=== PATIENT | female | born 1950 ===

== ENCOUNTER 2024-02-17 02:47 | Emergency (ER) | payer MEDICARE, SELFPAY ==
--- NOTE | 2024-02-17 | ECG_ITS ---
Test Reason : CARDIAC AREST Blood Pressure : / mmHG Vent. Rate : 038 BPM Atrial Rate : 000 BPM P-R Int : 000 ms QRS Dur : 150 ms QT Int : 454 ms P-R-T Axes : 000 -66 128 degrees QTc Int : 360 ms idioventricular rhythm Abnormal ECG No previous ECGs available Referred By: Ariadna Peter Electronically Signed By:LUDMILA HUERTAS MD
[2024-02-17 03:24] LABS: Glucose, Whole Blood 96 mg/dL (60-115)
[2024-02-17 04:06] VITALS: BMI 28.6
--- NOTE | 2024-02-17 05:26 | ED_ITS ---
HPI - CPR General Chief Complaint: Cardiac Arrest/CPR Stated Complaint: CARDIAC ARREST/ POSSIBLE FALL/UNRESPONISVE Time Seen by Provider: 02/17/24 03:32 Source: EMS Mode of arrival: EMS Limitations: other History of Present Illness ED Provider: Dr. Ariadna Peter HPI narrative: Patient comes to the emergency room via ambulance in cardiac arrest. According to EMS, patient called 911 for shortness of breath, seems that patient was hyperventilating. When EMS arrived at the patient's house, patient was screaming ?help me, help me , EMS had to break the door to get in, once they got into the house, patient lost consciousness and lost pulse. CPR was started immediately. EMS gave 4 epinephrine prior to arrival. Patient arrived at 02:49 here in the ED. pulse check was done, PEA Related Data Allergies Allergy/AdvReac Type Severity Reaction Status Date / Time Unable to Assess Allergy Verified 02/17/24 04:26 Review of Systems Review of Systems: Yes Other [facility] Past Medical History Source: unable to obtain Social History Social History Advance Directives: No Advance Directives Information Provided: No Physical Exam Vital Signs: Vital Signs: BMI result Body Mass Index 28.6 Const: Other: Appearance: In cardiac arrest, unresponsive Eyes: Pupils fixed and dilated unresponsive to light ENT: Intubated Neck: No obvious signs of trauma CVS: CPR in progress with Isauro Respiratory: Intubated Abdomen: Slightly distended. Skin: Cold to touch Extremities: No obvious signs of trauma Neuro: Unresponsive Psych: Unresponsive Medical Decision Making Medical Decision Making [facility] Narrative: In the emergency room patient arrived at 02:49. Patient received a total of 8 epinephrine, 2 bicarb, for atropine, IV Levophed and dopamine at maximum dose both. Between 249 and 342, patient regained rocks several times. However, every 4 minutes patient lost pulse and CPR had to be restarted. At 03:42, almost an hour of being in and out of cardiac arrest, it was determined that any further measures or interventions would be futile -EMS was called, patient was declined by the back office medical assistant. Case # [id number] -I reviewed patient's medical record, patient has not been here before, we do not know anything with the patient, no contact information. -of note, patient was found to be disheveled. While we were working on the patient, they were cockroaches coming out of her clothes -we do not have any past medical history of the patient to determine what caused the patient's cardiac arrest -could have been cardiac versus pulmonary Lab Data Labs: Lab Results 02/17/24 02/17/24 Range/Units 03:15 03:21 Hold Purple Top SEE NOTE Hold Blue Top SEE NOTE POC Glucose 96 (60-115) mg/dL Hold Green Top See Note Critical Care Time Critical Care Time Critical Care Time: Yes Total Critical Care Time: 60 Attestation: I have personally provided critical care time. Time includes review of lab data, radiology results, discussion with consultants, and monitoring for potential decompensation. Intervention performed as documented. Discharge Plan Discharge Clinical Impression: Cardiac arrest Patient Disposition: Print Language: Unable To Collect
== END 2024-02-17 06:45 | disposition expired ==
PROVIDERS: Emergency Provider Emergency Medicine
DX: I46.9 Cardiac arrest, cause unspecified (principal)
CPT/HCPCS: 36415; 82947; 93005; 96374; 96375; 99282; 99285; J0171; J0461

== ENCOUNTER → 2024-02-17 02:59 | Outpatient (BNV) | payer MEDICARE, SELFPAY | PROVIDERS: Emergency Provider Emergency Medicine; Visit Provider Internal Medicine Cardiovascular Disease | DX: I46.9 Cardiac arrest, cause unspecified (principal) | CPT/HCPCS: 93010 ==